=== PATIENT | female | born 1995 | race Two or more races ===

== ENCOUNTER 2019-06-23 07:49 | Emergency (ER) | payer MEDICAID ==
[~2019-06-23] VITALS: Ht 162.6 cm; Wt 73.9 kg
[2019-06-23 08:06] VITALS: BP 112/83
[2019-06-23] MEDS ORDERED: metFORMIN 500mg tab ORAL ONE (08:30)
--- NOTE | 2019-06-23 08:32 | Emergency Room Report ---
History of Present Illness General Chief Complaint: Flu Like Symptoms Source: Patient Present Illness HPI 24-year-old female with history of type 2 diabetes who presents to emergency room with 2 days of nasal congestion, subjective fevers, and sore throat. Patient reports an associated intermittent cough since yesterday. Patient states her symptoms worsened last night with subjective fever sensation. She did not take her temperature. Of note patient is noncompliant with her diabetes medications she has not taken her metformin for the last 1 week. She states she is working and does not have time to take her medicines or remember to take them when she gets home. Patient did not get influenza vaccination this year Allergies: Coded Allergies: No Known Allergies (Unverified , 06/23/19) Patient History Last Menstrual Period: 06/06/2019 Now: No : 0 Para: 0 Nursing Documentation-[facility] Hx Diabetes: Yes - Type 2 Review of Systems Constitutional: Reports: fever; Denies: chills ENT: Reports: throat pain; Denies: ear pain Respiratory: Denies: cough, shortness of breath Cardiovascular: Denies: chest pain, palpitations Gastrointestinal: Denies: diarrhea, vomiting Genitourinary: Denies: hematuria, pain Musculoskeletal: Denies: joint swelling Skin: Denies: rash, lesions Neurological: Denies: headache, dizziness Physical Exam Vital Signs Date Time Temp Pulse Resp B/P (MAP) Pulse Ox O2 Delivery O2 Flow Rate FiO2 06/23/19 07:57 98.1 96 15 112/83 (93) 95 Room Air Sp02 EP Interpretation: reviewed General Appearance: well appearing, no apparent distress, non-toxic Head: normocephalic, atraumatic Eyes: bilateral eye normal inspection ENT: hearing grossly normal, EOM grossly intact, normal pharynx, normal voice, uvula midline, moist mucus membranes Neck: full range of motion, supple Respiratory: lungs clear, normal breath sounds, no respiratory distress, speaking full sentences Cardiovascular #1: regular rate, rhythm, normal capillary refill Cardiovascular #2: 2+ radial (R), 2+ radial (L) Gastrointestinal: soft, non-distended Rectal: deferred Musculoskeletal: moves extm spontaneously, no lower extremity edema Neurologic: grossly normal Psychiatric: mood/affect normal Skin: warm/dry, normal turgor Medical Decision Making ER Course 24 old female who presents with sore throat, subjective fevers associated with mild cough for 2 days duration. History of diabetes noncompliant. Has not gotten influenza vaccination at this time Differential includes influenza, URI, viral illness, strep throat, pneumonia, DKA, uncontrolled hyperglycemia Will perform bedside glucose testing and influenza. Laboratory Tests Test 06/23/19 08:38 06/23/19 08:50 Urine Color Pale yellow Urine Appearance Clear Urine pH 6 (4.5-8.0) Urine Specific [place] 1.015 (1.005-1.035) Urine Protein Negative (NEGATIVE) Urine Glucose (UA) 4+ (NEGATIVE) H Urine Ketones Negative (NEGATIVE) Urine Blood 1+ (NEGATIVE) H Urine Nitrite Negative (NEGATIVE) Urine Bilirubin Negative (NEGATIVE) Urine Urobilinogen Normal MG/DL (0.0-1.0) Urine Leukocyte Esterase Negative (NEGATIVE) Urine RBC 0-2 /HPF (0 - 2) Urine WBC 2-4 /HPF (0 - 2) Urine Squamous Epithelial Cells Moderate /LPF (NONE/OCC) H Urine Triple Phosphate Crystals Occasional /LPF (NONE) Urine Bacteria Few /HPF (NONE) Urine Yeast Occasional /HPF (NONE) H Urine HCG, Qualitative Pending White Blood Count 9.6 K/UL (4.8-10.8) Red Blood Count 5.16 M/UL (4.20-5.40) Hemoglobin 15.3 G/DL (12.0-16.0) Hematocrit 43.6 % (37.0-47.0) Mean Corpuscular Volume 85 FL (80-99) Mean Corpuscular Hemoglobin 29.6 PG (27.0-31.0) Mean Corpuscular Hemoglobin Concent 35.0 G/DL (32.0-36.0) Red Cell Distribution Width 10.7 % (11.6-14.8) L Platelet Count 279 K/UL (150-450) Mean Platelet Volume 5.9 FL (6.5-10.1) L Neutrophils (%) (Auto) 64.0 % (45.0-75.0) Lymphocytes (%) (Auto) 25.4 % (20.0-45.0) Monocytes (%) (Auto) 7.4 % (1.0-10.0) Eosinophils (%) (Auto) 2.5 % (0.0-3.0) Basophils (%) (Auto) 0.7 % (0.0-2.0) Sodium Level 138 MMOL/L (136-145) Potassium Level 3.8 MMOL/L (3.5-5.1) Chloride Level 100 MMOL/L (98-107) Carbon Dioxide Level 32 MMOL/L (21-32) Anion Gap 6 mmol/L (5-15) Blood Urea Nitrogen 14 mg/dL (7-18) Creatinine 0.7 MG/DL (0.55-1.30) Estimate Glomerular Filtration Rate > 60 mL/min (>60) Glucose Level 325 MG/DL (74-106) H Calcium Level 9.1 MG/DL (8.5-10.1) Magnesium Level 1.6 MG/DL (1.8-2.4) L Total Bilirubin 0.5 MG/DL (0.2-1.0) Aspartate Amino Transferase (AST) 11 U/L (15-37) L Alanine Aminotransferase (ALT) 26 U/L (12-78) Alkaline Phosphatase 93 U/L (46-116) Total Protein 8.4 G/DL (6.4-8.2) H Albumin 4.2 G/DL (3.4-5.0) Globulin 4.2 g/dL Albumin/Globulin Ratio 1.0 (1.0-2.7) Acetone Level Negative (NEGATIVE) Microbiology Date/Time Source Procedure Growth Status 06/23/19 08:50 Nasal Nares - Final Complete 06/23/19 08:50 Nasal Nares - Final Complete Procedure Result INFLUENZA A ANTIGEN Final INFLUENZAE A RESULT NEGATIVE INFLUENZA B ANTIGEN Final INFLUENZAE B RESULT NEGATIVE Lab Results Impression Patient's testing notes normal WBC, contaminated urine, elevated glucose however no anion gap or acetone Influenza negative Reevaluation Time: 09:47 Last Vital Signs Date Time Temp Pulse Resp B/P (MAP) Pulse Ox O2 Delivery O2 Flow Rate FiO2 06/23/19 08:06 98.1 86 15 112/83 95 Room Air Status: improved Reevaluation Impression Patient's testing within normal limits. Patient's blood sugar improving. Patient recommended nasal decongestants and [id number] medications to control symptoms. Disposition: HOME, SELF-CARE Scripts Pseudoephedrine Hcl* (SUDAFED*) 60 Mg Tablet 60 MG PO Q6H for 5 Days, #15 TAB Prov: Faustino Coulter M.D. 06/23/19 Referrals: [facility] Patient Instructions: Sore Throat, Upper Respiratory Infection, Adult Additional Instructions: Please follow-up with your primary care doctor or clinic in 2 to 3 days. Please take your diabetes medications as prescribed. Please return to emergency room if you have any new or worsening symptoms. Faustino Coulter M.D. Jun 23, 2019 08:32
[2019-06-23 09:10] LABS: BASOPHILS % (AUTO) 0.7 % (0.0-2.0); EOSINOPHILS % (AUTO) 2.5 % (0.0-3.0); HEMATOCRIT 43.6 % (37.0-47.0); HEMOGLOBIN 15.3 G/DL (12.0-16.0); LYMPHOCYTES % (AUTO) 25.4 % (20.0-45.0); MEAN CORPUSCULAR VOLUME 85 FL (80-99); MONOCYTES % (AUTO) 7.4 % (1.0-10.0); PLATELET COUNT 279 K/UL (150-450); RED BLOOD COUNT 5.16 M/UL (4.20-5.40); RED CELL DISTRIBUTION WIDTH 10.7 % (11.6-14.8); WHITE BLOOD COUNT 9.6 K/UL (4.8-10.8)
[2019-06-23 09:19] VITALS: BP 105/67
[2019-06-23 09:20] LABS: ANION GAP 6 mmol/L (5-15); BLOOD UREA NITROGEN 14 mg/dL (7-18); CALCIUM 9.1 MG/DL (8.5-10.1); CARBON DIOXIDE 32 MMOL/L (21-32); CHLORIDE 100 MMOL/L (98-107); CREATININE 0.7 MG/DL (0.55-1.30); POTASSIUM 3.8 MMOL/L (3.5-5.1); SODIUM 138 MMOL/L (136-145)
[2019-06-23 09:24] LABS: ALANINE AMINOTRANSFERASE 26 U/L (12-78); ALBUMIN 4.2 G/DL (3.4-5.0); ALKALINE PHOSPHATASE 93 U/L (46-116); ASPARTATE AMINO TRANSFERASE 11 U/L (15-37); BILIRUBIN,TOTAL 0.5 MG/DL (0.2-1.0)
[2019-06-23 09:27] LABS: APPEARANCE,URINE CLEAR; BILIRUBIN, URINE NEGATIVE (NEGATIVE); COLOR,URINE PALE YELLOW; GLUCOSE, URINE (UA) 4+ (NEGATIVE); KETONES,URINE NEGATIVE (NEGATIVE); LEUKOCYTE ESTERASE ,URINE NEGATIVE (NEGATIVE); NITRITE,URINE NEGATIVE (NEGATIVE); PH,URINE 6 (4.5-8.0); PROTEIN,URINE NEGATIVE (NEGATIVE); UROBILINOGEN,URINE NORMAL MG/DL (0.0-1.0)
[2019-06-23] MEDS ORDERED: PSEUDOEPHEDRINE60 MG PO (09:50)
[2019-06-23 10:30] VITALS: BP 105/77
== END 2019-06-23 10:30 | disposition home or self-care (01) ==
LOC: EMR 08:22
DX: R50.9 Fever, unspecified (principal); R07.0 Pain in throat; R05 Cough; Z91.14 Patient's other noncompliance with medication regimen
CPT/HCPCS: 36415; 80053; 81003; 81025; 82009; 82962; 83735; 85025; 86710; 87086; Z7502; 99284